=== PATIENT | female | born 1960 | race Caucasian/White ===

== ENCOUNTER 2019-10-02 10:17 | Outpatient (CLI) | payer OTHER, SELFPAY ==
--- NOTE | ~2019-10-02 | MM_ITS ---
EXAMINATION: MM screening [facility] BI w derian HISTORY: Screening TECHNIQUE: Craniocaudal and mediolateral oblique 3-D tomosynthesis images were obtained and synthetic 2-D images were generated. CAD analysis was submitted and interpreted. COMPARISON: Comparison to multiple prior studies sequentially, with oldest reviewed study dated 06/04. BREAST PARENCHYMAL COMPOSITION: The breasts are heterogenously dense, which may obscure small masses. FINDINGS: There is no evidence of suspicious mass, calcification, or architectural distortion to sugg est malignancy in either breast. There has been no suspicious interval change. IMPRESSION: 1. No mammographic evidence of malignancy. 2. Recommend routine screening mammography in one year. BI-RADS Category 1: Negative Reviewed, dictated and finalized at location A.
== END 2019-10-02 10:18 | disposition home or self-care (01) ==
PROVIDERS: PCP Internal Medicine; Visit Provider Internal Medicine
DX: Z12.31 Encounter for screening mammogram for malignant neoplasm of breast (principal)
CPT/HCPCS: 77063; 77067

== ENCOUNTER 2020-04-29 13:04 | Outpatient (CLI) | payer OTHER, SELFPAY ==
--- NOTE | ~2020-04-29 | DEXA_ITS ---
Bone Density Report Name: Vera Cunningham Age: 59 Sex: Female Ethnicity: White Date of : 1960 Indication: osteopenia; postmenopausal Referring Provider: MICHELL DUNAWAY Study: Bone densitometry was performed. Exam Date: April 29, 2020 Accession number: [id number] Bone Density: Region BMD T-score Z-score Classification AP Spine (L1-L4) 0.758 -2.6 -1.4 Osteoporosis Femoral Neck (Left) 0.544 -2.7 -1.6 Osteoporosis Total Hip (Left) 0.679 -2.2 -1.3 Osteopenia Total Hip Bilateral Avg 0.636 -2.6 -1.7 Osteoporosis Femoral Neck (Right) 0.524 -2.9 -1.8 Osteoporosis Total Hip (Right) 0.591 -2.9 -2.1 Osteoporosis World Health Organization criteria for BMD impression classify patients as: Normal (T-score at or above -1.0), Osteopenia (T-score between -1.0 and -2.5), or Osteoporosis (T-score at or below -2.5). 10-year Fracture Risk: FRAX not reported because: Some T-score for Spine Total or Hip Total or Femoral Neck at or below -2.5 Previous Exams: Region Exam Age BMD T-score BMD Change BMD Change Date g/cm2 vs Baseline vs Previous AP Spine(L1-L4) 04/29/2020 59 0.758 -2.6 -0.170(-18.3%) -0.123(-14.0%) 03/18/2015 54 0.881 -1.5 -0.047(-5.0%)# -0.047(-5.0%)# 01/16/2013 52 0.928 -1.1 Total Hip(Left) 04/29/2020 59 0.679 -2.2 -0.132(-16.2%) -0.091(-11.8%) 03/18/2015 54 0.770 -1.4 -0.041(-5.0%)# -0.041(-5.0%)# 01/16/2013 52 0.811 -1.1 Total Hip(Right) 04/29/2020 59 0.591 -2.9 -0.049(-7.6%)# -0.065(-9.9%)* 03/18/2015 54 0.656 -2.3 0.016(2.5%)# 0.016(2.5%)# 01/16/2013 52 0.640 -2.5 *Denotes significance at 95% confidence level, LSC for AP Spine = 0.022 g/cm2, LSC for Total Hip = 0.027 g/cm2 Clinical Information Provided by Patient: Has used the following medications: Vitamin D, Calcium Patient maximum height was 67 Menopause Age: 51 No regular weight bearing exercise Does not regularly consume dairy products Drinks caffeinated beverages Onset of menses at age 16 Number of children 0 Impression: The patient has osteoporosis, based on the Right Total Hip T-score. The BMD for the AP Spine(L1-L4) decreased, changing by -14.0% since the last DXA exam. The BMD for the Total Hip(Left) decreased, changing by -11.8% since the last DXA exam. The BMD for the Total Hip(Right) decreased, changing by -9.9% since the last DXA exam. Discussion: HIGH RISK OF FRACTURE. BONE DENSITY IS UNDESIRABLY LOW AT ONE OR MORE SKELETAL SITES, CONSISTENT
== END 2020-04-29 13:05 | disposition home or self-care (01) ==
LOC: ANHIMG 13:06
PROVIDERS: PCP Internal Medicine; Visit Provider Internal Medicine
DX: M85.89 Other specified disorders of bone density and structure, multiple sites (principal); M81.0 Age-related osteoporosis without current pathological fracture; M85.852 Other specified disorders of bone density and structure, left thigh
CPT/HCPCS: 77080

== ENCOUNTER 2020-05-05 15:43 | Outpatient (CLI) | payer OTHER, MEDICARE, SELFPAY | END 2020-05-05 15:44 | disposition home or self-care (01) | LOC: ANHCOVIDVC 15:43 | PROVIDERS: PCP Internal Medicine | DX: Z23 Encounter for immunization (principal) | CPT/HCPCS: 0001A; 91300 ==

== ENCOUNTER 2020-05-26 15:40 | Outpatient (CLI) | payer OTHER, MEDICARE, SELFPAY | END 2020-05-26 15:41 | disposition home or self-care (01) | LOC: ANHCOVIDVC 15:40 | PROVIDERS: PCP Internal Medicine | DX: Z23 Encounter for immunization (principal) | CPT/HCPCS: 0002A; 91300 ==

== ENCOUNTER 2020-10-08 11:02 | Outpatient (CLI) | payer OTHER, SELFPAY ==
--- NOTE | ~2020-10-08 | MM_ITS ---
EXAMINATION: MM screening [facility] BI w derian HISTORY: Screening mammogram TECHNIQUE: Craniocaudal and mediolateral oblique 3-D tomosynthesis images were obtained and synthetic 2-D images were generated. CAD analysis was submitted and interpreted. COMPARISON: 10/02/2019, 07/31/2018, 06/17/2017 BREAST PARENCHYMAL COMPOSITION: The breasts are heterogeneously dense, which may obscure small masses . FINDINGS: There is no evidence of suspicious mass, calcification, or architectural distortion to sugg est malignancy in either breast. There has been no suspicious interval change. IMPRESSION: 1. No mammographic evidence of malignancy. 2. Recommend routine screening mammography in one year. BI-RADS Category 1: Negative Reviewed, dictated and finalized at location A.
== END 2020-10-08 11:03 | disposition home or self-care (01) ==
LOC: ANHIMG 11:06
PROVIDERS: PCP Internal Medicine; Visit Provider Internal Medicine
DX: Z12.31 Encounter for screening mammogram for malignant neoplasm of breast (principal)
CPT/HCPCS: 77063; 77067

== ENCOUNTER → 2021-04-23 02:29 | Outpatient (CLI) | payer OTHER, SELFPAY ==
[2021-04-23 11:07] LABS: Influenza A QL RT-PCR Negative (Negative); Influenza B QL RT-PCR Negative (Negative); SARS-CoV-2 RNA PCR Negative
== END ==
PROVIDERS: PCP Internal Medicine; Visit Provider Internal Medicine
DX: R68.89 Other general symptoms and signs (principal); Z20.822 Contact with and (suspected) exposure to COVID-19
CPT/HCPCS: 87502; C9803; U0003; U0005

== ENCOUNTER 2021-07-15 12:27 | Emergency (ER) | payer OTHER, SELFPAY ==
--- NOTE | ~2021-07-15 | XR_ITS ---
EXAMINATION: CT abdomen pelvis wo con, XR abdomen/kub 1V DATE: 07/15/2021 15:01 INDICATION: Left flank pain TECHNIQUE: Computed tomography (CT) of the abdomen and pelvis was performed without intravenous contr ast. Automated exposure control and iterative reconstruction technique were employed. The dose-length product was 391.50 mGy-cm. COMPARISON: None FINDINGS: CT: Lung bases are clear. Heart size is normal. No pericardial or pleural effusion. Multiple hepatic cyst s primarily in the right hepatic lobe, the largest measuring 2 cm. A few tiny calcified gallstones at the dependent fundus of the normal-appearing gallbladder. Pancreas and bilateral adrenal glands are normal. Scalloped margin to the spleen with small amount of capsular calcification likely sequela of prior trauma, infarct or surgery. 1 cm cyst at the lower pole of the right kidney. Left kidney is unr emarkable. 1 mm stone at the left ureterovesicular junction without hydronephrosis or hydroureter. No other urolithiasis. Bladder, uterus and right adnexa are unremarkable. 1.5 cm left adnexal cyst. No free intraperitoneal gas or fluid. No pathologically enlarged abdominal or pelvic lymphadenopathy. Mo derate multilevel lumbar facet osteoarthritis. KUB: Normal bowel gas pattern. No evident urolithiasis. Specifically the 1 mm stone identified at the left ureterovesicular junctions unable to be visualized on the plain radiographs likely due to its small size. Lung bases are clear. IMPRESSION: 1. 1 mm stone at the left ureterovesicular junction without hydronephrosis or hydroureter. 2. Cholelithiasis. Reviewed, dictated and finalized at location B. IMPRESSION: 1. 1 mm stone at the left ureterovesicular junction without hydronephrosis or h ydroureter. 2. Cholelithiasis.
[2021-07-15 12:35] VITALS: BP 118/73; PULSE 66; RESP 16; TEMP 36.2; O2SAT 100
[2021-07-15 12:54] LABS: Basophils Percent Auto 0.8 % (0.2-1.2); Eosinophils Absolute Auto 0.1 K/mm3 (0-0.3); Eosinophils Percent Auto 2.1 % (0-4.4); Hematocrit 41.7 % (37.0-47.0); Hemoglobin 13.4 g/dL (12.0-15.0); Lymphocytes Absolute Auto 1.76 K/mm3 (0.9-3.2); Lymphocytes Percent Auto 33.1 % (18.3-44.2); Mean Corpuscular HGB Conc 32.1 g/dl (32-36); Mean Corpuscular Volume 93.5 fl (80-100); Mean Platelet Volume 10.1 fl (7.4-10.4); Monocytes Absolute Auto 0.3 K/mm3 (0.1-0.6); Monocytes Percent Auto 6.2 % (2.6-8.5); Neutrophils Absolute Auto 3.1 K/mm3 (1.3-6.7); Neutrophils Percent Auto 57.8 % (45.5-73.1); Platelet Count Result 203 k/mm3 (150-375); Red Blood Count 4.46 M/mm3 (4.2-5.4); Red Cell Distribution Width 13.4 % (11.5-14.5); White Blood Count 5.3 K/mm3 (4.5-10.0)
[2021-07-15 13:06] LABS: Alanine Aminotransferase 53 U/L (6-35); Albumin Level 4.6 g/dL (3.5-5.1); Alkaline Phosphatase 62 U/L (38-126); Anion Gap 5 mmol/L (8-16); Aspartate Amino Transferase 60 U/L (14-36); Bilirubin,Total 0.8 mg/dL (0.2-1.3); Blood Urea Nitrogen 18 mg/dL (7-17); Calcium 8.7 mg/dL (8.4-10.2); Carbon Dioxide 32 mmol/L (22-30); Chloride 100 mmol/L (98-107); Estimated CRCL calculation 65 ml/min; Estimated Glomerular Filt Rate > 60; Glucose 95 mg/dL (65-110); Lipase 121 U/L (23-300); Potassium 3.8 mmol/L (3.4-5.0); Sodium 137 mmol/L (137-145)
[2021-07-15 15:27] LABS: Appearance Urine Clear (Clear); Bilirubin Urine Negative (Negative); Blood Urine 2+ (Negative); Color Urine Yellow (Yellow); Glucose Urine UA Negative (Negative); Ketones Urine Negative (Negative); Leukocyte Esterase Ur Negative LEU/UL (Negative); Nitrate Urine Negative (Negative); Protein Urine Negative (Negative); Specific Grav Ur 1.015 (1.001-1.035); Urobilinogen Urine 0.2 mg/dL (<2.0); pH Urine 8.5 (5.0-9.0)
[2021-07-15] MEDS: SODIUM CHLORIDE 0.9% IV 1,000 ML 999 ML IV CONT (15:28)
[2021-07-15 15:35] LABS: Amorphous Sediment Urine Few; Bacteria Urine Trace /hpf; Mucus Urine Rare /lpf; RBC Urine >75 /hpf (0-2); Squamous Epithelial Cell Urine Rare /hpf (Few); WBC Urine 0-3 /hpf
[2021-07-15 15:36] LABS: Add Urine Microscopic? YES
[2021-07-15 16:13] VITALS: BP 118/64; PULSE 67; RESP 18; O2SAT 100
--- NOTE | 2021-07-15 18:32 | ED.BACK ---
HPI - Back Pain/Injury General Chief Complaint: Back Pain/Injury Stated Complaint: L side pain Time Seen by Provider: 07/15/21 14:24 Source: patient Mode of arrival: ambulatory Limitations: no limitations History of Present Illness HPI Narrative: 60-year-old female presents today with complaints of left flank pain that she noted this morning. At time of my assessment pain rated a 3 out of a 10. Patient denies fever, abdominal pain, dysuria, urinary frequency, urinary urgency, or hematuria. Patient denies history of kidney stones. Related Data Home Medications Medication Instructions Recorded Confirmed aspirin 81 mg tablet,delayed 81 mg PO DAILY 08/06/19 06/24/21 release (Adult Low Dose Aspirin) cholecalciferol (vitamin D3) 50 50 mcg PO DAILY 06/25/20 06/24/21 mcg (2,000 unit) capsule Allergies Allergy/AdvReac Type Severity Reaction Status Date / Time Penicillins Allergy Unknown unknown Verified 07/15/21 13:51 Sulfa (Sulfonamide Allergy Unknown unknown Verified 07/15/21 13:51 Antibiotics) Review of Systems Review of Systems: CONSTITUTIONAL: Denies fever, chills, or sweats. EYES: Denies visual changes, redness, or discharge. ENT: Denies rhinorrhea, congestion, sore throat, or otalgia. CARDIOVASCULAR: Denies chest pain, palpitations, or edema. RESPIRATORY: Denies cough or dyspnea. GASTROINTESTINAL: Denies abdominal pain, nausea, vomiting, or diarrhea. GENITOURINARY: Left flank pain. Denies dysuria or hematuria. SKIN: Denies rash or itching. MUSCULOSKELETAL: Denies back pain, joint pain, or myalgia. NEUROLOGIC: Denies headache, numbness, dizziness, or weakness. PSYCHIATRIC: Denies anxiety or depression. [facility] Past Medical History Medical History Aphasia following cerebral infarction Enlarged lymph nodes, unspecified Hemiplegia and hemiparesis following cerebral infarction affecting unspecified side Major depressive disorder, recurrent, in partial remission Other psychoactive substance use, unspecified with psychoactive substance-induced sleep disorder Pure hypercholesterolemia, unspecified Family History Family History Father Family history of heart disease in male family member before age 55 Patient's father is in good health Grandparent Diabetes mellitus Family history of Alzheimer's disease Mother Patient's mother is in good health Social History Social History Second hand tobacco smoke exposure: Yes Alcohol intake: current Drinks per week: 1 Alcohol use details: social Substance use: never Exam Narrative: GENERAL: Well-appearing, well-nourished, and in no acute distress. HEAD: Normocephalic, atraumatic. EYES: PERRLA and EOMI. NECK: Supple. No adenopathy or masses. No carotid bruits or JVD CHEST: Clear to auscultation. No respiratory distress. No wheezes rales or rhonchi HEART: Regular rate and rhythm. No murmur heard. Normal peripheral pulses. ABDOMEN: Soft, nontender, nondistended, normal active bowel sounds. CVA tenderness negative x2 EXTREMITIES: Right side flaccid due to previous stroke. No edema. SKIN: Warm, dry, no rash. NEURO: No focal deficits. Alert and oriented x3. PSYCH: Normal mood and affect. Course Course Emergency Course: Results reviewed with patient. Patient's pain has been tolerable entire stay. Patient did note blood in urine when she just urinated for her sample. Patient aware of 1 mm stone at the left ureterovesicular junction without hydronephrosis or hydroureter. Patient discharged home with pain medication and Flomax. Or to follow-up with either urology or your primary. Return with any new or worsening symptoms. Vital Signs Vital signs: Vital Signs Temperature 36.2 C L 07/15/21 12:35 Pulse Rate 66 07/15/21 12:35 Respiratory Rate 16 07/15/21 12:35 Blood Pressure 118/73
== END 2021-07-15 16:15 | disposition home or self-care (01) ==
PROVIDERS: Emergency Medicine; Emergency Provider Nurse Practitioner Family; PCP Internal Medicine
DX: N20.0 Calculus of kidney (principal)
CPT/HCPCS: 36415; 74018; 74176; 80053; 81001; 83690; 85025; 96360; 99284; J7030

== ENCOUNTER → 2021-09-18 03:03 | Outpatient (CLI) | payer OTHER, SELFPAY ==
[2021-09-18 12:03] LABS: SARS-CoV-2 RNA PCR Negative
== END ==
PROVIDERS: PCP Internal Medicine; Visit Provider Internal Medicine
DX: R09.89 Other specified symptoms and signs involving the circulatory and respiratory systems (principal); Z20.822 Contact with and (suspected) exposure to COVID-19
CPT/HCPCS: C9803; U0003; U0005

== ENCOUNTER 2021-10-20 09:19 | Outpatient (CLI) | payer OTHER, SELFPAY ==
--- NOTE | ~2021-10-20 | MM_ITS ---
EXAMINATION: MM screening [facility] BI w derian HISTORY: Screening mammogram TECHNIQUE: Craniocaudal and mediolateral oblique 3-D tomosynthesis images were obtained and synthetic 2-D images were generated. CAD analysis was submitted and interpreted. COMPARISON: 10/08/2020, 10/02/2019, 07/31/2018 BREAST PARENCHYMAL COMPOSITION: The breasts are heterogeneously dense, which may obscure small masses . FINDINGS: There is no suspicious mass, calcification, or architectural distortion to suggest malignan cy in either breast. There has been no suspicious interval change. IMPRESSION: 1. No mammographic evidence of malignancy. 2. Recommend routine screening mammography in one year. BI-RADS Category 1: Negative Reviewed, dictated and finalized at location A.
== END 2021-10-20 09:20 | disposition home or self-care (01) ==
PROVIDERS: PCP Internal Medicine; Visit Provider Internal Medicine
DX: Z12.31 Encounter for screening mammogram for malignant neoplasm of breast (principal)
CPT/HCPCS: 77063; 77067

== ENCOUNTER 2022-07-14 11:00 | Outpatient (RCR) | payer OTHER, SELFPAY ==
--- NOTE | 2022-05-17 10:41 | PTOPEVAL1 ---
Assessment and note entered by Robert Kerr, PT Evaluation Information Assessment Status Evaluation Diagnosis R ankle pain and decreased range of motion Onset CVA 2010 Subjective Information The patient has been having increased pain and walking issues with the R ankle rolling over. She has gotten a new more supportive AFO two months ago and gotten Botox injections done about 3 weeks ago with the plan for more Botox injections on July 21 of this year. Patient uses a cane to get around, but did not use coming into the clinic. One fall in the last three months. Patient having increased pain in the ankle at night after walking on it all day. Reported Pain Level Pain Score 4: Self Report Assessment PT Clinical Summary Vera is a 61 year old coming into the clinic for pain in the R ankle. She recently had a new AFO made and had Botox injections. She has decreased ankle dorsiflexion and eversion along with increased tone. Patient was given instructions on a night splint to prevent loss of range of motion at night. Physical therapy will work on gait along with improved ankle range of motion which shold decrease pain. Plan of Care Interventions Electrical Stimulation,Gait Training,Hot Pack/Cold Pack,Manual Therapy,Neuro Re-education,Patient/ Caregiver Education,Therapeutic Activities, Therapeutic Exercise,Ultrasound Other Interventions taping PT Services Indicated Yes Treatment Frequency and 1x/wk for 4 weeks Duration These treatments will address the objective and functional deficits as defined above. The patient will be advanced safely and appropriately in order for the patient to progress towards his/her prior level of function. Additional exercises will be introduced and as well as a comprehensive home exercise program upon discharge, if needed, ?to ensure carryover of functional gains achieved in the clinic. This treatment plan has been reviewed and agreement upon by the patient.
--- NOTE | 2022-05-17 13:40 | OTOPEVAL1 ---
Assessment and note entered by DOMENICA Saenz/Mau, CHT Evaluation Information Diagnosis CVA with right-sided weakness Onset 2010 Subjective Information Patient presents today with orders for a hand splint. She has had Botox to the wrist/finger flexors due to residual tone/tightness from her CVA. Reported Pain Level Pain Score 2: Right Shoulder Assessment OT Clinical Summary Patient referred to outpatient OT with chronic right sided weakness due to CVA in 2010. She has no active movement in the right UE, but passively she has some tightness in the wrist and finger flexors. She is an excellent candidate for a resting hand splint to help prevent further fisting of the right hand. Skilled OT indicated for splint fabrication and ensuring good fit and independence with don/doffing, therapeutic exercise for stretching, and modalities PRN. Plan of Care Interventions Therapeutic Exercise,Manual Therapy,Hot Pack/Cold Pack,Check Out for Orthotic/Pr OT Services Indicated Yes Treatment Frequency and 0-1x/week for 4 weeks Duration These treatments will address the objective and functional deficits as defined above. The patient will be advanced safely and appropriately in order for the patient to progress towards his/her prior level of function. Additional exercises will be introduced and as well as a comprehensive home exercise program upon discharge, if needed, ?to ensure carryover of functional gains achieved in the clinic. This treatment plan has been reviewed and agreement upon by the patient.
--- NOTE | 2022-05-17 16:40 | STOPEVAL1 ---
Assessment and note entered by Sridevi Engle SALES PROJECT COORDINATOR Evaluation Information Assessment Status Evaluation Assessment Status Evaluation Assessment Status Evaluation Diagnosis Aphasia Onset 03/2010 Subjective Information Patient reported that the woman with her was her power of assistant city attorney, turns out to be her sister as well. Patient reports that she feels that she feels Speech Therapy while at [facility] has been helpful. She [id number] that she feels her pitch is too high and her sister reports that sometimes patient speaks too loudly and has to be asked to quiet herself. Patient continually used the word pitch and sister continued to indicate that it was loudness. Reported Pain Level Pain Score 2: Self Report Pain Score 0: Self Report Pain Score 4: Self Report Assessment ST Clinical Summary COMMUNICATION EVALUATION This patient was seen for a Speech Therapy evaluation at the request of her physician. She was noted to have physical complaints and therefore PT/OT evaluation was requested along with the Speech Therapy evaluation. Patient and sister report what implied up to five years of Speech Therapy through patient's local hospital and [facility] along with two-three years of ST at the clinic on the [facility] but no Speech Therapy for the last five years or so. Patient reported she was told she has Aphasia and Anomia however she states that her biggest complaint currently is that her pitch is high. When saying this, patient placed her head up higher and produced a higher-pitched ah sound as opposed to a lower pitch however patient's sister repeated that her concern is that patient speaks too loudly in restaurants, therefore it was difficult to determine which of these issues bother them more. At the end of the session, patient indicated that she wants to be able to produce more fluent sentences without omitting the function words and other words and phrases from her sentences. Today the patient was given portions of the [place] [facility] Aphasia
--- NOTE | 2022-06-11 10:04 | OTOPDC ---
Assessment and note entered by Nelson Donohue, OTR/L, CHT OT DISCHARGE 06/11/22 OT Clinical Summary Patient referred to OT for hand orthotic. A custom resting hand orthotic was fabricated and she has trialed this for 2 weeks now. She is reporting good fit and not needing any adjustments. Plan to discharge from OT with goals met. Thank you for this referral.
--- NOTE | 2022-06-14 15:18 | PTOPDC ---
Assessment and note entered by Robert Kerr, PT Evaluation Information Assessment Status Discharge Diagnosis Right ankle hemiplegia, gait dysfunction Onset CVA 2010 Subjective Information Patient reports walking is better, but the ankle is going back to the way it was prior to botox injections. Reports she has had to slowly reduce time in the night splint as it starts hurting her more as she has it on. Walking in the park without issue. Reported Pain Level Pain Score 0: Self Report Pain Score 0: Self Report Assessment PT Clinical Summary Vera is a 61 year old female coming into the clinic to work on improving R ankle mobility following botox injections. The patient has improved strength in the RLE hips and knees along with self reported walking better. Unfortunately no improvement in ankle range of motion. Reports she is doing botox again July 21 and recommend getting in the night splint from day 1 instead of waiting multiple weeks before starting that. Discharged from skilled physical therapy at this time. Plan of Care PT Services Indicated No
--- NOTE | 2022-06-15 16:49 | STOPPROG ---
Assessment and note entered by Sridevi Engle, CLAY GRINDER Assessment ST Clinical Summary PROGRESS NOTE AND TREATMENT SUMMARY The patient has been seen for an outpatient speech /language evaluation and eight treatment sessions focusing on expressive language and speech. Patient reports that she feels that Speech Therapy has been helpful, Words, function words, him, her, they, When asked to clarify, she stated, Function words...is smooth sailing. When asked if anything else has gotten easier, patient stated, The and they a little bit harder for me. She made other comments that were not either intelligible or specific enough to understand. Patient stated, I have Speech Therapy, is great. Patient was presented with re-evaluation using portions of the [place] [facility] Aphasia Evaluation. Patient exhibited the following results: *Create a Sentence Given One Word: 3/5 (increase of 3; initially 0/5). *Divergent Naming: List Animals/One minute: 15 ( increase of 5 animals). *List States/One minute: 10 (no significant difference). *Describe Lorena Traore Theft Picture: 21 individual words; two sentences (increase from 18 individual words/two sentences). Therapy has been focusing on improving sentence construction, use of noun/verb, pronouns, helping verbs, and correct verb tenses. Patient is highly motivated to participate in direct Speech Therapy and desires to continue at least one more month. Continue Speech Therapy twice weekly for four additional weeks to address word finding and sentence construction as described above. Plan of Care Interventions Treatment of Language ST Services Indicated Yes These treatments will address the objective and functional deficits as defined above. The patient will be advanced safely and appropriately in order for the patient to progress towards his/her prior level of function. Additional exercises will be introduced and as well as a comprehensive home exercise program upon discharge, if needed, ?to ensure carryover of functional gains achieved in the clinic. This treatment plan has been reviewed and agreement upon by the patient.
--- NOTE | 2022-07-14 12:19 | STOPDC ---
Assessment and note entered by Sridevi Engle MARZIPAN MOLDER Evaluation Information Assessment Status Discharge Reported Pain Level Pain Score 0: Self Report Assessment ST Clinical Summary DISCHARGE SUMMARY AND TREATMENT SUMMARY This patient has been seen for an initial Speech Evaluation on 05/17 and 16 treatment sessions focusing on improving word-finding skills and sentence construction as she tends to speak in single words and short utterances. Patient had shown mild improvement in these areas from time of evaluation to re-assessment on 06/14. Today the patient reports that Speech Therapy has been helpful: Yes, yes, oh my God, yes? Helpful! Fabulous! When asked how it has been helpful, she stated, This and the...fine. Boy, terrible. A boy is terrible, for sure! Then she stated, One boy is terrible for me. Stroke is hard! When asked what she meant by one boy, she stated, Xavier and then, nephew, and expressed, not in so many words, that her nephew becomes a little frustrated when communicating with her. She mentioned other family members who do a fantastic job of following her communication. When asked if she wanted to continue, she stated yes, and that she wants to address longer sentences. Stated I would be fine and dandy. Patient also has been expressing in the past few sessions that she expects that her speech has plateaued and would understand if she were to be discharged. Today the patient was re-assessed using portions of the [facility] Language Evaluation and the Cookie Jar Theft Picture from the [place] [facility] Aphasia Evaluation (BDAE). Patient performed as follows: Sentence Construction: 4/5 sentences were complete . Increase from 3. Unfortunately, she struggled with one of those sentences, attempting three times to create an acceptable sentence without therapist assistance. Cookie Jar Theft Picture: Patient produced 23 appropriate words and 5 sentences, increasing from 18 words and 2 sentences. Some repetition of sentences noted (i.e. conveying the same information twice).
== END 2022-07-14 15:20 | disposition home or self-care (01) ==
LOC: ANHST 11:00
PROVIDERS: PCP Internal Medicine
DX: M21.549 Acquired clubfoot, unspecified foot (principal); M75.01 Adhesive capsulitis of right shoulder; M25.571 Pain in right ankle and joints of right foot; I69.359 Hemiplegia and hemiparesis following cerebral infarction affecting unspecified side; R26.9 Unspecified abnormalities of gait and mobility; R13.0 Aphagia; G89.29 Other chronic pain; Z78.9 Other specified health status
CPT/HCPCS: 92507; 92523; 97110; 97140; 97161; 97165; 97763; L3806

== ENCOUNTER 2023-01-25 15:18 | Outpatient (CLI) | payer OTHER, SELFPAY ==
--- NOTE | ~2023-01-25 | MM_ITS ---
EXAMINATION: MM screening [facility] BI w derian HISTORY: Screening mammogram TECHNIQUE: Craniocaudal and mediolateral oblique 3-D tomosynthesis images were obtained and synthetic 2-D images were generated. CAD analysis was submitted and interpreted. COMPARISON: 10/20/2021, 10/08/2020, 10/02/2019 BREAST PARENCHYMAL COMPOSITION: The breasts are heterogeneously dense, which may obscure small masses . FINDINGS: No suspicious mass, calcification, or architectural distortion are identified in either deny ast to suggest malignancy. There has been no suspicious interval change. IMPRESSION: 1. No mammographic evidence of malignancy. 2. Recommend routine screening mammography in one year. BI-RADS Category 1: Negative Reviewed, dictated and finalized at location A. METALS HAND ENGRAVER
== END 2023-01-25 15:19 | disposition home or self-care (01) ==
PROVIDERS: PCP Nurse Practitioner Family; Visit Provider Nurse Practitioner Family
DX: Z12.31 Encounter for screening mammogram for malignant neoplasm of breast (principal)
CPT/HCPCS: 77063; 77067

== ENCOUNTER 2023-03-22 11:16 | Outpatient (CLI) | payer OTHER, SELFPAY ==
--- NOTE | ~2023-03-22 | XR_ITS ---
XR chest 2V DATE: 03/22/2023 11:38 INDICATION: Unintended weight loss past year TECHNIQUE: PA and lateral views COMPARISON: None FINDINGS: Bilateral hyperinflation. Normal heart size. No hilar or mediastinal enlargement. No pulmonary infiltrate or consolidation, pulmonary vascular congestion or pleural effusion or pneumo thorax. Mild thoracic dextroscoliosis and lumbar levoscoliosis. IMPRESSION: Bilateral hyperinflation Reviewed, dictated and finalized at location L. TINTER IMPRESSION: Bilateral hyperinflation
== END 2023-03-22 11:17 | disposition home or self-care (01) ==
PROVIDERS: PCP Nurse Practitioner Family; Visit Provider Nurse Practitioner Family
DX: R59.9 Enlarged lymph nodes, unspecified (principal); R63.4 Abnormal weight loss; R91.8 Other nonspecific abnormal finding of lung field
CPT/HCPCS: 71046

== ENCOUNTER 2023-03-26 09:58 | Emergency (ER) | payer OTHER, SELFPAY ==
--- NOTE | ~2023-03-26 | CT_ITS ---
EXAMINATION: CT abdomen pelvis wo con DATE: 03/26/2023 12:51 INDICATION: Left flank pain TECHNIQUE: Computed tomography (CT) of the abdomen and pelvis was performed without intravenous contr ast. The dose-length product (DLP) was 244.72 mGy-cm. Automated exposure control and iterative recons truction technique were employed. COMPARISON: 07/15/2021 FINDINGS: Minimal dependent atelectasis is present in the lung bases. The heart size is normal. Cysts of the liver measure up to 1.8 cm in the left hepatic lobe. There are stones in the nondistended gal lbladder. Peripheral calcification of the spleen may reflect prior trauma, surgery, or infarct. The p ancreas and adrenal glands are normal. The kidneys are unremarkable. No stones are identified in the kidneys, ureters, or bladder. No hydronephrosis or hydroureter. No pathologically enlarged abdominal or pelvic lymph nodes are identified. No free intraperitoneal gas or evidence of bowel obstruction. T here is moderate lumbar spondylosis. IMPRESSION: 1. No CT correlate for the patient's symptoms. 2. Cholelithiasis without evidence of cholecystitis. Reviewed, dictated and finalized at location F. 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
[2023-03-26 10:16] VITALS: BP 123/75; PULSE 76; RESP 16; TEMP 35.9; O2SAT 100
--- NOTE | 2023-03-26 10:32 | ECG_ITS ---
Measurements Intervals [place] Rate: 61 P: 43 MO: 165 QRS: 45 QRSD: 82 T: 17 QT: 310 QTc: 313 Interpretive Statements SINUS RHYTHM NONSPECIFIC T-WAVE ABNORMALITY NO PREVIOUS ECG AVAILABLE FOR COMPARISON Electronically Signed On 03-26-2023 12:36:08 STORE DELI MANAGER by Ankur Mcdonough M.D.
--- NOTE | 2023-03-26 10:34 | ED.GENADULT ---
HPI - General Adult General Chief complaint: Recheck/Abnormal Lab/Rx Stated complaint: low potassium Time Seen by Provider: 03/26/23 10:32 History of Present Illness HPI narrative: 62-year-old female presenting to the emergency department for evaluation of hypokalemia. Patient had outpatient labs showing a low potassium. Patient also reports she does have some urinary symptoms. Patient initially had follow-up with outpatient due to having some left flank pain and when she had baseline labs she was found to have a hypokalemia. Patient does have aphasia from an intentional overdose and stroke approximately 13 years ago. Patient is present with her sister. Patient does report a prior history of ureteral calculi Related Data Home Medications Medication Instructions Recorded Confirmed aspirin 81 mg tablet,delayed 81 mg PO DAILY 08/06/19 03/25/23 release (Adult Low Dose Aspirin) cholecalciferol (vitamin D3) 50 50 mcg PO DAILY 06/25/20 03/25/23 mcg (2,000 unit) capsule baclofen 10 mg tablet 10 mg PO QHS PRN muscle spasm 03/21/23 03/25/23 Allergies Allergy/AdvReac Type Severity Reaction Status Date / Time nabumetone Allergy Mild skin Verified 03/25/23 10:44 peeling Penicillins Allergy Unknown unknown Verified 03/25/23 10:44 Sulfa (Sulfonamide Allergy Unknown unknown Verified 03/25/23 10:44 Antibiotics) Review of Systems Review of Systems: All systems reviewed & are unremarkable except as noted in HPI and below PMFSH Past Medical History Medical History Aphasia following cerebral infarction Enlarged lymph nodes, unspecified Hemiplegia and hemiparesis following cerebral infarction affecting unspecified side Major depressive disorder, recurrent, in partial remission Other psychoactive substance use, unspecified with psychoactive substance-induced sleep disorder Pure hypercholesterolemia, unspecified Family History Family History Father Family history of heart disease in male family member before age 55 Patient's father is in good health Grandparent Diabetes mellitus Family history of Alzheimer's disease Mother Patient's mother is in good health Social History Social History Smoking status: Never smoker Second hand tobacco smoke exposure: Yes Alcohol intake: current Drinks per week: 1 Alcohol use details: social Substance use: never Substance use type: does not use Lack of Transportation: No Lack of Food: Never True Current Housing: I Have Housing Concerned About Future Housing: No Difficulty Paying Gas/Electric Bills: No Difficulty Paying for Meds: No Currently Unemployed: No Education: Decline to Answer Difficulty w/ Childcare or Family Care: No Exam Narrative: APPEARANCE: Well appearing, no pain, no distress, well-nourished. HEAD: normocephalic, atraumatic. EYES: PERRLA/EOMI, conjunctivae clear. NOSE: Normal no drainage EARS:TMS clear with good light reflex. THROAT: Pharynx clear, no exudate. NECK: Supple. No adenopathy, no masses. RESPIRATORY: Airway patent, respirations nonlabored. Clear to auscultation bilaterally, no rales, rhonchi, wheezing. CARDIOVASCULAR: Regular rate and rhythm without murmurs rubs or gallops. ABDOMINAL: Soft, left CVA tenderness to palpation MUSCULOSKELETAL: Moves all extremities. Strength/ROM intact, No edema, No calf tenderness. NEURO: Aphasia, unchanged from baseline SKIN: Warm, dry. Normal Color Course Course Emergency Course: 62-year-old female presenting to the emergency department for evaluation of left flank pain and outpatient labs showing hypokalemia. Patient was treated with 40 mEq of p.o. potassium and 20 mEq of IV potassium. Patient afebrile with a leukocytosis of 11.7 stable hemoglobin 11.8. The patient's initial potassium was 2.6 and this was r
[2023-03-26 10:52] LABS: Basophils Percent Auto 0.1 % (0.2-1.2); Eosinophils Percent Auto 0.2 % (0-4.4); Hematocrit 35.6 % (37.0-47.0); Hemoglobin 11.8 g/dL (12.0-15.0); Immature Granulocyte Absolute 0.04 K/mm3 (0.00-0.031); Immature Granulocyte Percent A 0.3 % (0-0.5); Lymphocytes Absolute Auto 1.99 K/mm3 (0.9-3.2); Mean Corpuscular HGB Conc 33.1 g/dl (32-36); Mean Corpuscular Hemoglobin 30.1 pg (26-34); Mean Corpuscular Volume 90.8 fl (80-100); Mean Platelet Volume 10.9 fl (7.4-10.4); Monocytes Absolute Auto 0.8 K/mm3 (0.1-0.6); Monocytes Percent Auto 6.5 % (2.6-8.5); Neutrophils Absolute Auto 8.9 K/mm3 (1.3-6.7); Neutrophils Percent Auto 75.9 % (45.5-73.1); Platelet Count Result 220 k/mm3 (150-375); Red Blood Count 3.92 M/mm3 (4.2-5.4); Red Cell Distribution Width 13.9 % (11.5-14.5); White Blood Count 11.7 K/mm3 (4.5-10.0)
[2023-03-26 11:05] LABS: Alanine Aminotransferase 16 U/L (6-35); Albumin Level 4.2 g/dL (3.5-5.1); Alkaline Phosphatase 68 U/L (38-126); Anion Gap 6 mmol/L (8-16); Aspartate Amino Transferase 24 U/L (14-36); Blood Urea Nitrogen 16 mg/dL (7-17); Calcium 10.2 mg/dL (8.4-10.2); Carbon Dioxide 34 mmol/L (22-30); Chloride 95 mmol/L (98-107); Estimated CRCL calculation 43 ml/min; Estimated Glomerular Filt Rate 51; Glucose 122 mg/dL (65-110); Magnesium 2.2 mg/dL (1.6-2.3); Potassium 2.6 mmol/L (3.4-5.0); Sodium 135 mmol/L (137-145)
[2023-03-26] MEDS: KCL 20 MEQ/SW 100 ML 100 ML 50 MEQ IVPB (11:30)
[2023-03-26] MEDS: POTASSIUM CHLORIDE 20 MEQ PACKET (FOR LIQUID) 40 MEQ PO ×2 (11:30→14:30)
[2023-03-26 11:34] VITALS: BP 112/78; PULSE 72; RESP 17; O2SAT 99
[2023-03-26] MEDS: SODIUM CHLORIDE 0.9% IV 250 ML 999 ML (11:43)
[2023-03-26 12:59] LABS: Appearance Urine Turbid (Clear); Bacteria Urine Rare /hpf; Bilirubin Urine Negative (Negative); Blood Urine Negative (Negative); Color Urine Yellow (Yellow); Glucose Urine UA Negative (Negative); Granular Casts Urine Present /lpf; Hyaline Casts Urine Present /lpf; Ketones Urine Trace mg/dL (Negative); Leukocyte Esterase Ur Trace LEU/UL (Negative); Mucus Urine Present /lpf; Nitrate Urine Negative (Negative); Non Pathogenic Casts >20; Protein Urine 3+ mg/dL (Negative); Squamous Epithelial Cell Urine Moderate /hpf (Few); pH Urine 8.5 (5.0-9.0)
[2023-03-26 13:00] LABS: Add Urine Microscopic? YES
[2023-03-26 14:07] LABS: Anion Gap 3 mmol/L (8-16); Blood Urea Nitrogen 16 mg/dL (7-17); Calcium 9.7 mg/dL (8.4-10.2); Carbon Dioxide 33 mmol/L (22-30); Chloride 99 mmol/L (98-107); Estimated CRCL calculation 47 ml/min; Estimated Glomerular Filt Rate 57; Glucose 92 mg/dL (65-110); Potassium 2.9 mmol/L (3.4-5.0); Sodium 135 mmol/L (137-145)
[2023-03-26 14:10] VITALS: BP 111/72; PULSE 60; RESP 13; O2SAT 96
[2023-03-26 14:30] VITALS: BP 116/71; PULSE 62; RESP 20; O2SAT 99
== END 2023-03-26 14:37 | disposition home or self-care (01) ==
PROVIDERS: Emergency Provider Emergency Medicine; PCP Nurse Practitioner Family
DX: E87.6 Hypokalemia (principal); R10.9 Unspecified abdominal pain; E78.00 Pure hypercholesterolemia, unspecified; I69.320 Aphasia following cerebral infarction; I69.351 Hemiplegia and hemiparesis following cerebral infarction affecting right dominant side; Z87.442 Personal history of urinary calculi; Z79.82 Long term (current) use of aspirin; K80.20 Calculus of gallbladder without cholecystitis without obstruction; R94.31 Abnormal electrocardiogram [ECG] [EKG]
CPT/HCPCS: 36415; 74176; 80048; 80053; 81001; 83735; 85025; 87086; 93005; 96365; 96366; 99284; A9270; J3480; J7050

== ENCOUNTER 2023-09-20 09:37 | Outpatient (CLI) | payer OTHER, SELFPAY ==
--- NOTE | ~2023-09-20 | XR_ITS ---
Right Knee Technique: AP, lateral, and oblique views were obtained. Clinical History: Pain Findings: No fracture or dislocation is seen. Osseous alignment is anatomic. Mild tricompartmental sp urring noted. Soft tissues are unremarkable. No joint effusion is seen. Impression: Mild tricompartmental degenerative spurring. Reviewed, dictated and finalized at [facility]. Impression: Mild tricompartmental degenerative spurring.
== END 2023-09-20 09:38 | disposition home or self-care (01) ==
LOC: ANHIMG 09:43
PROVIDERS: PCP Nurse Practitioner Family; Visit Provider Nurse Practitioner Family
DX: M17.11 Unilateral primary osteoarthritis, right knee (principal)
CPT/HCPCS: 73564

== ENCOUNTER 2023-11-02 13:14 | Emergency (ER) | payer OTHER, SELFPAY ==
[2023-11-02 13:21] VITALS: BP 114/67; PULSE 72; RESP 14; TEMP 36.6; O2SAT 100
[2023-11-02 13:35] LABS: Basophils Percent Auto 0.5 % (0.2-1.2); Eosinophils Absolute Auto 0.1 K/mm3 (0-0.3); Hematocrit 37.1 % (37.0-47.0); Hemoglobin 12.2 g/dL (12.0-15.0); Immature Granulocyte Absolute 0.03 K/mm3 (0.00-0.031); Immature Granulocyte Percent A 0.4 % (0-0.5); Lymphocytes Absolute Auto 1.93 K/mm3 (0.9-3.2); Lymphocytes Percent Auto 24.1 % (18.3-44.2); Mean Corpuscular HGB Conc 32.9 g/dl (32-36); Mean Corpuscular Hemoglobin 30.3 pg (26-34); Mean Corpuscular Volume 92.1 fl (80-100); Mean Platelet Volume 10.2 fl (7.4-10.4); Monocytes Absolute Auto 0.7 K/mm3 (0.1-0.6); Monocytes Percent Auto 9.2 % (2.6-8.5); Neutrophils Absolute Auto 5.2 K/mm3 (1.3-6.7); Neutrophils Percent Auto 64.8 % (45.5-73.1); Platelet Count Result 218 k/mm3 (150-375); Red Blood Count 4.03 M/mm3 (4.2-5.4); Red Cell Distribution Width 14.4 % (11.5-14.5)
[2023-11-02 13:48] LABS: Alanine Aminotransferase 32 U/L (6-35); Albumin Level 3.7 g/dL (3.5-5.1); Alkaline Phosphatase 70 U/L (38-126); Aspartate Amino Transferase 30 U/L (14-36); Bilirubin,Total 0.6 mg/dL (0.2-1.3); Blood Urea Nitrogen 18 mg/dL (7-17); Calcium 9.1 mg/dL (8.4-10.2); Carbon Dioxide > 40 mmol/L (22-30); Chloride 91 mmol/L (98-107); Estimated CRCL calculation 51 ml/min; Estimated Glomerular Filt Rate > 60; Glucose 76 mg/dL (65-110); Potassium 2.6 mmol/L (3.4-5.0); Sodium 136 mmol/L (137-145)
[2023-11-02] MEDS: SODIUM CHLORIDE 0.9% IV 500 ML 999 ML IV CONT (14:22)
[2023-11-02] MEDS: KCL 20 MEQ/SW 100 ML 100 ML 50 MEQ IVPB (14:22)
[2023-11-02] MEDS: POTASSIUM CHLORIDE 20 MEQ ER TABLET 40 MEQ PO (14:23)
--- NOTE | 2023-11-02 16:07 | ED.GENADULT ---
HPI - General Adult General Chief complaint: Recheck/Abnormal Lab/Rx Stated complaint: low k Time Seen by Provider: 11/02/23 13:28 History of Present Illness HPI narrative: Patient is a 63-year-old female who presents ER with low potassium. She had outpatient labs performed yesterday routinely by her PCP. She has history of low potassium in the past. She takes potassium chloride 10 mEq daily. She has not missed a dose. She reports she has had poor appetite recently. No diarrhea or vomiting. Denies fevers or chills or sweats. No muscle spasms. Patient has mild expressive aphasia from previous CVA. Related Data Home Medications Medication Instructions Recorded Confirmed aspirin 81 mg tablet,delayed 81 mg PO DAILY 08/06/19 10/06/23 release (Adult Low Dose Aspirin) cholecalciferol (vitamin D3) 50 50 mcg PO DAILY 06/25/20 10/06/23 mcg (2,000 unit) capsule Allergies Allergy/AdvReac Type Severity Reaction Status Date / Time nabumetone Allergy Mild skin Verified 11/01/23 11:41 peeling Penicillins Allergy Unknown unknown Verified 11/01/23 11:41 Sulfa (Sulfonamide Allergy Unknown unknown Verified 11/01/23 11:41 Antibiotics) Review of Systems Review of Systems: All systems reviewed & are unremarkable except as noted in HPI and below Constitutional: Constitutional: Reports no additional constitutional complaints Cardiovascular: Cardiovascular: Reports no additional cardiovascular complaints Respiratory: Respiratory: Reports no additional respiratory complaints Gastrointestinal: Gastrointestinal: Reports no additional gastrointestinal complaints Neurologic: Reports system reviewed and no additional complaints, except as documented [facility] Past Medical History Medical History Abdominal abscess Aphasia following cerebral infarction Enlarged lymph nodes, unspecified Hemiplegia and hemiparesis following cerebral infarction affecting unspecified side Major depressive disorder, recurrent, in partial remission Other psychoactive substance use, unspecified with psychoactive substance-induced sleep disorder Pure hypercholesterolemia, unspecified Surgical History Surgical History History of oral surgery History of tonsillectomy Family History Family History Father Family history of heart disease in male family member before age 55 Patient's father is in good health Heart disease Grandparent Diabetes mellitus Family history of Alzheimer's disease Mother Patient's mother is in good health Social History Social History Smoking status: Never smoker Second hand tobacco smoke exposure: Yes Alcohol intake: current Drinks per week: 1 Alcohol use details: social Substance use: current Substance use type: marijuana Last use: edibles Do You Feel Safe in your Home?: Yes Lack of Transportation: No Lack of Food: Never True Current Housing: I Have Housing Concerned About Future Housing: Decline to Answer Difficulty Paying Gas/Electric Bills: Decline to Answer Difficulty Paying for Meds: Decline to Answer Currently Unemployed: Decline to Answer Education: Decline to Answer Difficulty w/ Childcare or Family Care: Decline to Answer Living arrangements: alone Occupation/Education: retired 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 HEAD: Normocephalic, atraumatic. ENT: Mucous membranes moist. NECK: Supple. CHEST: Clear to auscultation. No respiratory distress. HEART: Regular rate and rhythm. Normal peripheral pulses. ABDOMEN: Soft, nontender, nondistended. EXTREMITIES: Right-sided wea
[2023-11-02 16:54] LABS: Anion Gap 4 mmol/L (4-12); Blood Urea Nitrogen 17 mg/dL (7-17); Calcium 8.6 mg/dL (8.4-10.2); Carbon Dioxide 35 mmol/L (22-30); Chloride 95 mmol/L (98-107); Estimated CRCL calculation 57 ml/min; Estimated Glomerular Filt Rate > 60; Glucose 94 mg/dL (65-110); Potassium 3.1 mmol/L (3.4-5.0); Sodium 134 mmol/L (137-145)
== END 2023-11-02 17:28 | disposition home or self-care (01) ==
PROVIDERS: Emergency Provider Emergency Medicine; PCP Nurse Practitioner Family
DX: E87.6 Hypokalemia (principal); Z79.82 Long term (current) use of aspirin; E78.00 Pure hypercholesterolemia, unspecified; I69.320 Aphasia following cerebral infarction; I69.359 Hemiplegia and hemiparesis following cerebral infarction affecting unspecified side; F33.41 Major depressive disorder, recurrent, in partial remission
CPT/HCPCS: 36415; 80048; 80053; 85025; 96365; 96366; 99284; A9270; J3480; J7040

== ENCOUNTER 2023-11-16 10:26 | Outpatient (CLI) | payer OTHER, SELFPAY ==
--- NOTE | ~2023-11-16 | US_ITS ---
EXAMINATION: US right upper quadrant DATE: 11/16/2023 11:32 INDICATION: R10.11 - Right upper quadrant pain TECHNIQUE: Multiple grayscale and Doppler ultrasound images of the right upper quadrant were obtained . COMPARISON: CT abdomen pelvis 03/26/2023. FINDINGS: The visualized portions of the pancreas are normal. The liver is normal with normal echogen icity and echotexture. No surface nodularity. Multiple hepatic cysts. Normal hepatopetal flow in the main portal vein. The gallbladder is normal size with no abnormal wall thickening or pericholecystic fluid. Multiple echogenic foci within the gallbladder lumen, likely gallstones. The common bile duct measures 2 mm. There was no sonographic Cleaning sign. IMPRESSION: Cholelithiasis. Otherwise normal right upper quadrant ultrasound findings. Reviewed, dictated and finalized at location K.
== END 2023-11-16 10:27 | disposition home or self-care (01) ==
PROVIDERS: PCP Nurse Practitioner Family; Visit Provider Nurse Practitioner Family
DX: K80.20 Calculus of gallbladder without cholecystitis without obstruction (principal)
CPT/HCPCS: 76705

== ENCOUNTER 2024-01-31 14:10 | Outpatient (CLI) | payer OTHER, SELFPAY ==
--- NOTE | ~2024-01-31 | XR_ITS ---
EXAM: XR knee LT min 4V, XR tibia fibula LT 2V DATE: 01/31/2024 14:36 HISTORY: W19.XXXA - Unspecified fall, initial encounter . COMPARISON: None available. FINDINGS: Decreased mineralization. No fracture or dislocation. No lytic or blastic lesion. Mild med ial and lateral knee joint space narrowing. Mild tricompartmental knee osteophytosis. Mild degenerati ve changes in the ankle joint. Small volume joint fluid. No erosion or periosteal change. Soft tissue s within normal limits. IMPRESSION: Osteopenia. Mild tricompartmental left knee osteoarthritis. Mild left ankle osteoarthriti s. Small left knee joint effusion. Reviewed, dictated and finalized at location K. 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 Mild tricompartmental left knee osteoarthritis. Mild le ft ankle osteoarthritis. Small left knee joint effusion.
== END 2024-01-31 14:11 | disposition home or self-care (01) ==
PROVIDERS: PCP Nurse Practitioner Family; Visit Provider Nurse Practitioner Family
DX: M85.88 Other specified disorders of bone density and structure, other site (principal); M17.12 Unilateral primary osteoarthritis, left knee; M19.072 Primary osteoarthritis, left ankle and foot; M25.462 Effusion, left knee
CPT/HCPCS: 73564; 73590

== ENCOUNTER 2024-05-30 13:07 | Outpatient (CLI) | payer OTHER, SELFPAY ==
--- NOTE | ~2024-05-30 | US_ITS ---
EXAM: US carotid duplex BI - 05/30/2024 13:30 CDT History: 63 years old Female with I67.9 - Cerebrovascular disease, unspecified Technique: Real-time sonographic images of the bilateral carotid and vertebral arterial systems were obtained. Color Doppler sonography and spectral waveform analysis were performed. Comparison: None available Findings: No atherosclerotic plaque seen.. Right Velocities (cm/sec): Right Common carotid Peak systolic velocity: 125 Right internal carotid Peak systolic velocity: 113 End diastolic velocity: 41 Right ICA/CCA ratio: 0.9 Right External carotid Peak systolic velocity: 68.4 Right Vertebral: Antegrade flow Left Velocities (cm/sec): Left Common carotid Peak systolic velocity: 99 Left internal carotid Peak systolic velocity: 76 End diastolic velocity: 16 Left ICA/CCA ratio: 0.8 Left External carotid Peak systolic velocity: 62 Left Vertebral: Antegrade flow Impression: No evidence of significant carotid vascular stenosis. Reviewed, dictated and finalized at location A. Impression: No evidence of significant carotid vascular stenosis.
--- OUTSIDE RECORDS SUMMARY | 2024-05-30 14:42 | XMS_ITS | Continuity of Care Document ---
Author Organization [facility] Address [address] [place] [address] Phone Care Team Providers Care Surgical Technician Name Role Phone Sadie Motta Unavailable Unavaila ble Allergies, Adverse Reactions, Alerts Substance Reaction Status Criticality Sulfa (Sulfonamide Antibiotics) Unknown Active No Information Penicillins Unknown Active No Information Medications Medication Instructions Dosage Effective Dates (start - stop) Status Comments LEVOTHROID (unknown strength) Not Available - Active ASPIR 81 (unknown strength) Not Available - Active TOPIRAMATE (unknown strength) Not Available - Active POTASSIUM CITRATE ER (unknown strength) Not Available - Active CITALOPRAM HBR (unknown strength) Not Available - Active METAXALONE (unknown strength) Not Available - Active CALCIUM (unknown strength) Not Available - Active Procedures Procedure Date OFFICE/OUTPATIENT VISIT EST OFFICE/OUTPATIENT VISIT NEW Advance Directives Directive Yes / No Effective Date File Name No Information Encounters Encounter Description Practice Location Reason(s) For Visit Diagnoses Date Provider Providers Copied on Encounter OFFICE/OUTPAT IENT VISIT EST [facility] , [address] [facility] [address] [place] [address], [facility], tel:[phone] [facility] Bursitis of right shoulderHemip legia, unspecified affecting right dominant sidePain of right shoulder region [address]. [address], [place], [address]. tel: [phone] OFFICE/OUTPAT IENT VISIT NEW [facility] , [address], [place], [address], tel:[phone] [facility] Pain in joint involving shoulder region [address] L'Radha Demarco. [address], [place], [place], [id number] . tel: [phone] Referring Provider: Kendy Kamara [address], [place], [address]. tel:[phone] Family History Family Member Type Diagnosis Age At Onset Father Problem (finding) Cardiovascular disease Payers Payer name Insurance type Covered green party ID Clement lauren(s) Essence OT [id number] Social History Type Description Quantity Date Captured Comments Alcohol Use Details Caffeine Use Details Unknown Tobacco Use Status No Information Smoking Status No Information Sex Female Vital Signs Date / Time: Height Weight BMI Pulse Rate Blood Pressure Temperature Respiratory Rate Body Surface Area Head Circumference Head Circ. Percentile Wt./Romeo. Percentile BMI percentile Pulse Ox Inhaled Ox 4:45 PM 67.00 in 58.967 kg (130.00 lbs) 20.3 6 kg/m eter (2) 124/64 mm[Hg] Chief Complaint And Reason For Visit No Information Reason For Referral Reason For Referral No Information Plan Of Treatment Date Type Action Status Referral Ordered: RADEX ERNIE COMPL MINIMUM 2 VIEWS RT ordered History Of Present Illness Encounter Date Complaint History Of Prese nt Illness No Information Functional Status Date Functional Assessmen t No Information Instructions Date Instruction Additional Infor mation Rest, ice and elevate. Related t o Bursitis of right shoulder Home exercise program. Related t o Pain in joint involving shoulder region Assessments Type Assessment Date assessment Bursitis of right shoulder assessment Hemiplegia, unspecified affectin g right dominant side assessment Pain of right shoulder region Patient Care Teams Name Effective Dates (start - stop) Status Members No Information
--- OUTSIDE RECORDS SUMMARY | 2024-05-30 14:42 | XMS_ITS | Data Portability ---
Author Organization [facility] [place] Address [address] [place] [address] Assessment Encounter Date Assessment Date Assessment LastModified by Organization Details LastModified Time 11/26/2022 11/26/2022 Annual gynecological exam performed. Patient will come back in a year unless there are new symptoms. [email or web address] Not available 12/02/2022 10:45:13 Plan of Treatment Reminders Order Date Submit Date Provider Last Modified By Organization Details Last Modified Time Details Appointments None record ed. Lab None record ed. Referral None record ed. Procedures None record ed. Surgeries None record ed. Imaging None record ed. Medication Orders None record ed. Patient TargetsNo targets recorded. Patient InstructionsNo instructions recorded. Reason for Referral None Reported. Problems Name Problem SNOMED Code Status Onset Date Resolution Date Notes Provider Name and Address Organization Details Recorded Time Screening for malignant neoplasm of rectum Active 2015 Encounter for screening for malignant neoplasm of rectum;Pra ctice ID: 0001 Not Available [facility] 0 21:23:36 Evaluatio n finding Active 2017 Hematuria, unspecifie d;Practice ID: 0001 Not Available [facility] 0 21:23:37 Specializ ed medical examinati on Active 2013 Gynecologi devika Examinatio n;Recorded Elsewhere: No Locatio n: [facility] rce: EHR Chroni c: N Practice ID: 0001 Billa ble Time: 04:30:00 PM Not Available [facility] 0 21:23:37 Leukocyto sis [id number] Active 2013 LEUKOCYTOS IS NOS;Record ed Elsewhere: No Locatio n: [facility] rce: EHR Chroni c: N Practice ID: 0001 Billa ble Time: 04:30:00 PM Not Available [facility] 0 21:23:[address] Concept Active 2017 Encntr for general adult medical exam w/o abnormal findings;R ecorded Elsewhere: No Locatio n: [facility] rce: EHR Chroni c: N Practice ID: 0001 Billa ble Time: 01:30:00 PM Not Available [facility] 0 21:23:[address] Concept Active 2015 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;R ecorded Elsewhere: No Locatio n: [facility] rce: EHR Chroni c: N Practice ID: 0001 Billa ble Time: 02:30:00 PM Not Available [facility] 0 21:23:37 Screening for malignant neoplasm of cervix Active 2013 Screening for malignant neoplasms of the cervix;Rec orded Elsewhere: No Locatio n: [facility] rce: EHR Chroni c: N Practice ID: 0001 Billa ble Time: 04:30:00 PM Not Available [facility] 0 21:23:[address] Concept Active 2017 Encounter for general adult medical exam w abnormal findings;P ractice ID: 0001 Not Available [facility] 0 21:23:37 Problem Notes None recorded. Procedures Surgical History Date Name Laterality Status Provider Name and Address Organization Details Recorded Time 11/22/19 22 Date of Last Mammogram completed [facility] 11/26/2022 14:29:58 02/21/19 22 Most Recent Bone Density completed [facility] 11/26/2022 14:30:23 02/21/19 17 Date of Last Colonoscopy completed [facility] 11/26/2022 14:30:12 02/05/20 16 Date of Last Pap Smear completed [facility] 11/26/2022 14:29:50 laparoscopic myomectomy completed [facility] 11/26/2022 14:31:06 Imaging Results None recorded. Procedure Notes None recorded. Medical Equipment None Reported. Allergies Allergen ID Allergen Name Allergen Category Reaction Reaction Severity Criticality Documentation Date Start Date Code Code System Note Provider Name and Address Organization Details Recorded Time 45492 Product containin g penicilli n (product) medicatio n Not available Not available Not available 02/08/2020 91951 8001 SNOMED Comme nt: Locat [facility]; Not Available [facility] 0 14:20:44 23546 Substance with sulfonami de structure and antibacte rial mechanism of action (substanc e) medicatio n Not available Not available Not available 02/08/2020 76059 8003 SNOMED Comme nt: Locat ion: [facility]; Not Available [facility] 0 14:20:44 Medications Name Sig Start Date Stop Date Status Note LastModified by Organization Details LastModified Time citalopra m 10 mg tablet take 1 tablet by oral route every day 11/26 completed Prescrib ed Elsewher e: Yes Loca tion: [facility] odify By: sancho zapataunter DateTime : 04/26/19 18 01:30:00 PM Not Available Not Available Not Available hydrocodo ne 5 mg-acetam inophen 325 mg tablet take 1 tablet by oral route every 6 hours as needed for pain 11/26 completed Prescrib ed Elsewher e: Yes Loca tion: [facility] odify By: sancho Metzger ncounter DateTime : 02/05/20 16 02:30:00 PM Not Available Not Available Not Available levothyro xine 75 mcg tablet TAKE 1 TABLET BY MOUTH EVERY DAY active Not Available Not Available No t Available potassium 99 mg tablet 04/25 completed Prescrib ed Elsewher e: Yes Loca tion: [facility] odify By: sancho Metzger ncounter DateTime : 08/21/19 14 04:30:00 PM Not Available Not Available Not Available thyroid (bulk) powder 11/26 completed Prescrib ed Elsewher e: Yes Loca tion: [facility] odify By: cmedical Encount er DateTime : 08/21/19 14 04:30:00 PM Not Available Not Available Not Available citalopra m 20 mg tablet 11/26 completed Not Available Not Available Not Available Cipro 500 mg tablet take 1 tablet by oral route every 12 hours 11/26 completed Prescrib ed Elsewher e: No Locat ion: [facility] odify By: catracho peterson DateTime : 12/02/19 18 04:30:00 PM Not Available Not Available Not Available gabapenti n 300 mg capsule TAKE 2 CAPSULES BY MOUTH AT BEDTIME 11/26 completed Not Available Not Available Not Available topiramat e 15 mg sprinkle capsule take 1 capsule by oral route 2 times every day in the morning and evening 02/04 completed Prescrib ed Elsewher e: Yes Loca tion: [facility] odify By: amkuhl John ncounter DateTime : 08/21/19 14 04:30:00 PM Not Available Not Available Not Available nabumeton e 500 mg tablet TAKE 1 TABLET BY MOUTH TWICE A DAY 11/26 completed Not Available Not Available Not Available rosuvasta tin 40 mg tablet 11/26 completed Not Available Not Available Not Available Klor-Con M20 mEq tablet,ex tended release TAKE 2 TABLETS BY MOUTH DAILY 11/26 completed Not Available Not Available Not Available Calcio Xochitl 500 mg tablet take 1 by Oral route once 11/26 completed Prescrib ed Elsewher e: Yes Loca tion: [facility] odify By: cmedical Encount er DateTime : 08/21/19 14 04:30:00 PM Not Available Not Available Not Available Vitamin D3 10 mcg (400 unit) capsule active Prescrib ed Elsewher e: Yes Loca tion: [facility] odify By: cmedical Encount er DateTime : 08/21/19 14 04:30:00 PM Not Available Not Available Not Available Belsomra 20 mg tablet TAKE 1 TABLET BY MOUTH EVERYDAY AT BEDTIME active Not Available Not Available No t Available baclofen 5 mg tablet TAKE 2 TABLETS (10 MG TOTAL) BY MOUTH 3 (THREE) TIMES A DAY 11/26 completed Not Available Not Available Not Available Vitals Date Recorded Body height Systolic blood pressure Diastolic blood pressure Provider Name and Address Organization Details Last Updated DateTime 11/26/2022 170.18 cm 128 mm[Hg] 72 mm[Hg] Rimma Stoner [facility] 11/26/2022 14:29:15 Social History Question Answer Notes LastModified by Organizat ion Details LastModified Time Tobacco Smoking Status Never Smoker Rimmadaryl Mitchellnahomy [facility] 11/26/2022 14:14:54 What Is Your Level Of Alcohol Consumption? Occasional Information not available 11/26/2022 Have You Ever Been Counseled For Unhealthy Alcohol Use? No Information not available 11/26/2022 Do You Use Any Illicit Or Recreational Drugs? No Information not available 11/26/2022 Has Tobacco Cessation Counseling Been Provided? No Information not available 11/26/2022 Do You Or Have You Ever Used Any Other Forms Of Tobacco Or Nicotine? No Information not available 11/26/2022 Sex: Unknown Functional Status None recorded. Mental Status None recorded. Family History Nothing Reported Notes:Maternal uncle: Diabet es mellitus Paternal aunt: Cancer, lung Paternal grandfather: Diabetes mellitus Medical History Condition Response Allergies (Food, seasonal, environmental ) N Other N Breast Cancer N Drug/Latex Allergies/Reactions N Blood Transfusion N Dermatologic Disorders N Lung Disease N Defects or Inherited Disease N Breast Problem N Gestational Diabetes N Hematologic disorders N Anesthesia Complications N History of STI N Deep Vein Thrombosis N Polycystic ovary syndrome N Anxiety Disorder N Autoimmune disease N Arthritis N Infertility N Polyps N Acid Reflux (GERD) N History of abnormal pap N Cancer N Stroke Y Varicosities N Neurologic/Epilepsy N Endometriosis N High Cholesterol N Headaches N Fibromyalgia N Kidney Disease N Heart Problems N Kidney or Bladder Problems N Thyroid Problems N GI Problems N Eating Disorder N Anemia N Art (IVF or FET) N Psychiatric Illness N Ovarian Cancer N Diabetes N Pulmonary (TB, Asthma) N Hepatitis/Liver Disease N No Past Medical History N Eczema N Urinary Tract Infection Y Abuse/Domestic Violence N Asthma N Trauma/Violence N Depression/ depression N Heart Disease N Pre-Eclampsia N Hypertension N Osteoporosis N Thrombophilias N Gynecological History Statement/Question Response If Post Menopausal, Age at Menopause 51 Abnormal Pap N Date of Last Colonoscopy 02/22/2016 Date of Last Mammogram 11/21/2021 Most Recent Bone Density 02/21/2021 Sexually Active? N STIs/STDs N HPV Vaccine N Date of Last Pap Smear 02/05/2016 Sexual Problems? N Current Control Method Menopause Obstetrics History GPAL:G 0 P 0 0 0 0 Past Encounters Encounter ID Performer Location Encounter Start Date Encounter Closed Date Diagnosis/Indication Diagnosis SNOMED-CT Code Diagnosis ICD10 Code Diagnosis Note [id number] Amena Pereira , [facility] [address] [address] 11/26/2022 14:19:16 11/30/2022 17:07:15 Gynecologic examination 58868498 Z01.419 Take Calcium with Vitamin D 12-1500mg daily. Do monthly self breast exams. It is advised to get annual flu shot in the fall and she could obtain at [facility] or [facility] care clinic. If you haven't received the Tdap vaccine in the last 10 years you should obtain one as well. Have mammogram yearly, bone density every 2-3 years and colonoscop y every 5-10 years depending on findings and history. Engage in daily exercise of low impact aerobic exercise 45-60 minutes 4-5 times weekly. Avoid tobacco and illicit drugs as well as using moderation with alcohol intake less than 1-2 8 oz beverages daily. This lifestyle behavior pattern will lead to less health conditions and longer life span. If BMI greater than 25 weight watchers or dietary consult advised. Questions have been answered. Patient appears to understand instructio ns, but if you have any further questions call or respond to this email Pap/hpv sent (blind sample sent-diffi cult exam)STD Screen not sexually active for >12yrsGene tic Screen discussedC olon Screen UTD PCPDexa Screen UTD PCPRoutine Labs PCP UTD Health Concerns Section Related Observation LastModified by Organization Detai ls LastModified Time None Recorded Concern Status LastModified by Organization Details LastModified Time None Recorded Advance Directives Directive None Recorded Payers Encounter Date Sequence Insurance Name Policy Number Policy Snyder Covered Member ID Snyder Member ID Guarantor Name 11/26/2022 1 [facility] (MEDICARE REPLACEMENT HMO) [id number] Vera Cunningham [id number] Vera Cunningham Notes Date Note Type Note Provider Name and Address Organization Details Recorded Time 11/26/2022 text/html 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.Menopau jeison Symptoms:no menopausal symptoms; normal vaginal lubrication Vaginal Bleeding:history of menopause having occurred; no history of post menopausal bleeding Urinary Symptoms:no hematuria; no incontinence; no nocturia; no urinary frequency Vulva:no genital lesion; no vulvar atrophy Vagina:normal vaginal discharge; no vaginal atrophy Breast:no breast lump; no nipple discharge; no breast pain Sexual Complaints:no sexual complaints Psychological Symptoms:no depression; no anxiety Preventive Measures:encourag e regular mammograms starting age 40; encourage self breast examination; encourage regular exercise; encourage no tobacco use; needs to schedule mammogram (Has this scheduled); history of recent colonoscopy Amena Pereira, JESSE-BC [address], [place], [address], [facility] 12/02/2022 10:47:32 OBGyn Episode No OBEpisode recorded.
== END 2024-05-30 13:08 | disposition home or self-care (01) ==
PROVIDERS: PCP Nurse Practitioner Family; Visit Provider Psychiatry & Neurology Neurology
DX: I63.9 Cerebral infarction, unspecified (principal); I67.9 Cerebrovascular disease, unspecified
CPT/HCPCS: 93880

== ENCOUNTER 2024-09-11 11:04 | Emergency (ER) | payer OTHER, SELFPAY ==
--- NOTE | ~2024-09-11 | XR_ITS ---
EXAM/ PROCEDURE: XR knee LT min 4V - 09/11/2024 11:25 CDT HISTORY: 63 years old Female with pain COMPARISON: None available TECHNIQUE: Three view(s) FINDINGS/ IMPRESSION: There are no fractures or dislocations.Joint space narrowing, subchondral sclerosis, subchondral cyst formation and osteophyte formation, compatible with mild osteoarthritis. Reviewed, dictated and finalized at location A.
[2024-09-11 11:07] VITALS: BP 134/68; PULSE 91; RESP 16; TEMP 36.5; O2SAT 98
--- OUTSIDE RECORDS SUMMARY | 2024-09-11 11:07 | XMS_ITS | Data Portability ---
Author Organization [facility] [place] Address [address] [place] [address] Assessment Encounter Date Assessment Date Assessment LastModified [...] Name and Address Organization Details Recorded Time Specializ ed medical examinati on Active 2013 Gynecologi devika Examinatio n;Recorded Elsewhere: No Locatio n: [facility] rce: EHR Chroni c: N Practice ID: 0001 Billa ble Time: 04:30:00 PM Not Available [facility] 0 21:23:37 Leukocyto sis [id number] Active 2013 LEUKOCYTOS IS NOS;Record ed Elsewhere: No Locatio n: [facility] rce: EHR Chroni c: N Practice ID: 0001 Billa ble Time: 04:30:00 PM Not Available [facility] 0 21:23:37 Screening for malignant neoplasm of cervix Active 2013 Screening for malignant neoplasms of the cervix;Rec orded Elsewhere: No Locatio n: [facility] rce: EHR Chroni c: N Practice ID: 0001 Billa ble Time: 04:30:00 PM Not Available 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 abn findings;R ecorded Elsewhere: No Locatio n: [facility] rce: EHR Chroni c: N Practice ID: 0001 Billa ble Time: 02:30:00 PM Not Available [facility] 0 21:23:37 Evaluatio n finding Active 2017 Hematuria, unspecifie d;Practice ID: 0001 Not Available [facility] 0 21:23:[address] Concept Active 2017 Encntr for general adult medical exam w/o abnormal findings;R ecorded Elsewhere: No Locatio n: [facility] rce: EHR Chroni c: N Practice ID: 0001 Billa ble Time: 01:30:00 PM Not Available [facility] 0 21:23:[address] Concept Active 2017 Encounter for general adult medical exam w abnormal findings;P ractice ID: 0001 Not Available [facility] 0 21:23:37 Problem Notes None recorded. Procedures Surgical History Date Name Laterality Status Provider Name and Address Organization Details Recorded Time 11/22/19 22 Date of Last Mammogram completed [facility] 11/26/2022 14:29:58 02/21/19 22 Most Recent Bone Density completed [facility] 11/26/2022 14:30:23 02/21/19 17 Date of Last Colonoscopy completed [facility] 11/26/2022 14:30:12 02/05/20 16 Date of Last Pap Smear completed [facility] 11/26/2022 14:29:50 laparoscopic myomectomy completed [facility] 11/26/2022 14:31:06 Imaging Results None recorded. Procedure Notes None recorded. Medical Equipment None Reported. Allergies Allergen ID Allergen Name Allergen Category Reaction Reaction Severity Criticality Documentation Date Start Date Code Code System Note Provider Name and Address Organization Details Recorded Time 69791 Product containin g penicilli n (product) medicatio n Not available Not available Not available 02/08/2020 57259 8001 SNOMED Comme nt: Locat [facility]: [facility]; Not Available [facility] 0 14:20:44 46562 Substance with sulfonami de structure and antibacte rial mechanism of action (substanc e) medicatio n Not available Not available Not available 02/08/2020 03354 8003 SNOMED Comme nt: Locat ion: [facility]; Not Available [facility] 0 14:20:44 Medications Name Sig Start Date Stop Date Status Note LastModified by Organization Details LastModified Time citalopra m 10 mg tablet take 1 tablet by oral route every day 11/26 completed Prescrib ed Elsewher e: Yes Loca tion: [facility]ify By: sancho zapataunter DateTime : 04/26/19 18 01:30:00 PM Not Available Not Available Not Available hydrocodo ne 5 mg-acetam inophen 325 mg tablet take 1 tablet by oral route every 6 hours as needed for pain 11/26 completed Prescrib ed Elsewher e: Yes Loca tion: [facility] odify By: sancho Metzger ncounter DateTime : 02/05/20 16 02:30:00 PM Not Available Not Available Not Available levothyro xine 75 mcg tablet TAKE 1 TABLET BY MOUTH EVERY DAY active Not Available Not Available No t Available potassium 99 mg tablet 04/25 completed Prescrib ed Elsewher e: Yes Loca tion: [facility] odify By: sancho Metzger ncounter DateTime : 08/21/19 14 04:30:00 PM Not Available Not Available Not Available thyroid (bulk) powder 11/26 completed Prescrib ed Elsewher e: Yes Loca tion: [facility] odify By: cmedical Encount er DateTime : 08/21/19 14 04:30:00 PM Not Available Not Available Not Available citalopra m 20 mg tablet 11/26 completed Not Available Not Available Not Available Cipro 500 mg tablet take 1 tablet by oral route every 12 hours 11/26 completed Prescrib ed Elsewher e: No Locat ion: [facility] odify By: catracho peterson DateTime : 12/02/19 [...] Elsewher e: Yes Loca tion: [facility] odify By: amkuhl John ncounter DateTime : [...] Elsewher e: Yes Loca tion: [facility] odify By: cmedical Encount er DateTime : 08/21/19 14 04:30:00 PM Not Available Not Available Not Available Vitamin D3 10 mcg (400 unit) capsule active Prescrib ed Elsewher e: Yes Loca tion: [facility] odify By: cmedical Encount er DateTime : [...] Available Vitals Date Recorded Body height Systolic And Diastolic Provider Name and Address Organization Details Last Updated DateTime 11/26/2022 170.18 cm 128/72 mm[Hg] Rimma Stoner [facility] 11/26/2022 14:29:15 Social History Question Answer Notes LastModified by Organizat ion Details LastModified Time Tobacco Smoking Status Never Smoker Rimma Stoner [facility] 11/26/2022 14:14:54 Have You Ever Been Counseled For Unhealthy Alcohol Use? No Information not available 11/26/2022 Has Tobacco Cessation Counseling Been Provided? No Information not available 11/26/2022 Sex: Unknown Functional Status Question Answer Note LastModified by Organizat ion Details LastModified Time Do you use any illicit or recreational drugs? No Information not available 11/26/2022 Do you or have you ever used any other forms of tobacco or nicotine? No Information not available 11/26/2022 What is your level of alcohol consumption? Occasional Information not available 11/26/2022 Mental Status None recorded. Family History Nothing Reported Notes:Maternal uncle: Diabet es mellitus Paternal aunt: Cancer, lung Paternal grandfather: Diabetes mellitus Medical History Condition Response Other N Blood Transfusion N Dermatologic Disorders N Gestational Diabetes N Anxiety Disorder N Autoimmune disease N Arthritis N Polyps N Infertility N Acid Reflux (GERD) N Cancer N Varicosities N Stroke Y Neurologic/Epilepsy N Fibromyalgia N Headaches N Kidney Disease N Heart Problems N Kidney or Bladder Problems N Eating Disorder N Art (IVF or FET) N Hepatitis/Liver Disease N No Past Medical History N Urinary Tract Infection Y Asthma N Trauma/Violence N Thrombophilias N Allergies (Food, seasonal, environmental ) N Breast Cancer N Drug/Latex Allergies/Reactions N Lung Disease N Defects or Inherited Disease N Breast Problem N Hematologic disorders N Anesthesia Complications N History of STI N Deep Vein Thrombosis N Polycystic ovary syndrome N History of abnormal pap N Endometriosis N High Cholesterol N Thyroid Problems N GI Problems N Anemia N Psychiatric Illness N Ovarian Cancer N Diabetes N Pulmonary (TB, Asthma) N Eczema N Abuse/Domestic Violence N Depression/ depression N Heart Disease N Pre-Eclampsia N Hypertension N Osteoporosis N Gynecological History Statement/Question Response If Post [...] SNOMED-CT Code Diagnosis ICD10 Code Diagnosis Note [id number] Amena Pereira [facility] [address] [address] 11/26/2022 14:19:16 11/30/2022 17:07:15 Gynecologic examination [id number] Z01.419 Take Calcium with Vitamin D 12-1500mg daily. Do monthly self breast exams. It is advised to get annual flu shot in the fall and she could obtain at [facility] or [facility] care clinic. 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 12/02/2022 10:47:32 OBGyn Episode No OBEpisode recorded.
--- OUTSIDE RECORDS SUMMARY | 2024-09-11 11:07 | XMS_ITS | Continuity of Care Document ---
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 [address], [place], [address]. tel: [phone] OFFICE/OUTPAT IENT VISIT NEW [facility] , [address], [place], [address], tel:[phone] [facility] Pain in joint involving shoulder region 5 L'Radha Demarco. [address], [place], [place], [id number] . tel: [phone] Referring Provider: Kendy Kamara [address], [place], [address]. tel:[phone] Family History Family Member Type Diagnosis Age At Onset Father Problem (finding) Cardiovascular disease Payers Payer name Insurance type Covered constitution party ID Clement lauren(s) Essence OT [id number] Social History Type Description Quantity Date Captured [...]
--- OUTSIDE RECORDS SUMMARY | 2024-09-11 12:26 | XMS_ITS | Continuity of Care Document ---
Author Organization [facility] Address [address] [place] [address] Phone Care Team Providers Care Post Doctoral Fellow Name Role Phone Sadie Motta Unavailable Unavaila [...] OFFICE/OUTPAT IENT VISIT EST [facility] , [address] [facility] [address] [place] [address], [facility], tel:[phone] [facility] Bursitis of right shoulderHemip legia, unspecified affecting right dominant sidePain of right shoulder region [address]. [address], [place], [address]. tel: [phone] OFFICE/OUTPAT IENT VISIT NEW [facility] , [address], [place], [address], tel:[phone] [facility] Pain in joint involving shoulder region 5 L'Radha Demarco. [address], [place], [place], [id number] . tel: [phone] Referring Provider: Kendy Kamara [address], [place], [address]. tel:[phone] Family History Family Member Type Diagnosis Age At Onset Father Problem (finding) Cardiovascular disease Payers Payer name Insurance type Covered constitution party ID Clement lauren(s) Essence OT [id number] Social History Type Description Quantity Date Captured Comments Alcohol Use Details Caffeine Use Details Unknown Tobacco Use Status No Information Smoking Status No Information Sex Female Vital Signs Date / Time: Height Weight BMI Pulse Rate Blood Pressure Temperature Respiratory Rate Body Surface Area Head Circumference Head Circ. Percentile Wt./[place]. Percentile BMI percentile Pulse Ox Inhaled Ox [...]
--- NOTE | 2024-09-11 13:49 | ED_ITS ---
HPI - Extremity Problem General Chief complaint: Extremity Problem,Nontraumatic Stated complaint: left knee pain Time Seen by Provider: 09/11/24 11:59 History of Present Illness HPI Narrative: 63-year-old female present to the emergency department for evaluation for left knee pain. Patient does have history of CVA with right-sided deficit. Patient states that she began having left knee pain just few days ago. Patient denies any specific incident of fall or injury. Patient does have history of receiving knee injections on the right knee due to knee swelling/arthritis Related Data Home Medications ?Medication ?Instructions ?Recorded ?Confirmed ?Last Taken ?Type aspirin 81 mg tablet,delayed 81 mg PO DAILY 08/06/19 05/08/24 Unknown History release (Adult Low Dose Aspirin) cholecalciferol (vitamin D3) 50 50 mcg PO DAILY 06/25/20 05/08/24 Unknown History mcg (2,000 unit) capsule Allergies Allergy/AdvReac Type Severity Reaction Status Date / Time nabumetone Allergy Mild skin Verified 09/11/24 11:09 peeling Penicillins Allergy Unknown unknown Verified 09/11/24 11:09 Sulfa (Sulfonamide Allergy Unknown unknown Verified 09/11/24 11:09 Antibiotics) Review of Systems Review of Systems: All systems reviewed & are unremarkable except as noted in HPI and below PMFSH Past Medical History Medical History Left-sided cerebrovascular accident (CVA) Abdominal abscess Enlarged lymph nodes, unspecified Other psychoactive substance use, unspecified 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, recurrent, in partial remission Pure hypercholesterolemia, unspecified Aphasia following cerebral infarction Hemiplegia and hemiparesis following cerebral infarction affecting unspecified side Surgical History Surgical History History of tonsillectomy History of oral surgery Family History Family History Father Family history of heart disease in male family member before age 55 Patient's father is in good health Heart disease Grandparent Diabetes mellitus Family history of Alzheimer's disease Mother Patient's mother is in good health Social History Social History Smoking status: Never smoker Second hand tobacco smoke exposure: Yes Alcohol intake: current Drinks per week: 1 Alcohol use details: social Substance use: current Substance use type: marijuana Last use: edibles Do You Feel Safe in your Home?: Yes Lack of Transportation: No Lack of Food: Never True Current Housing: I Have Housing Concerned About Future Housing: Decline to Answer Difficulty Paying Gas/Electric Bills: Decline to Answer Difficulty Paying for Meds: Decline to Answer Currently Unemployed: Decline to Answer Education: Decline to Answer Difficulty w/ Childcare or Family Care: Decline to Answer Living arrangements: alone Occupation/Education: retired 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 HEAD: normocephalic, atraumatic. EYES: PERRLA/EOMI, conjunctivae clear. NOSE: Normal no drainage EARS:TMS clear with good light reflex. THROAT: Pharynx clear, no exudate. NECK: Supple. No adenopathy, no masses. RESPIRATORY: Airway patent, respirations nonlabored. Clear to auscultation bilaterally, no rales, rhonchi, wheezing. CARDIOVASCULAR: Regular rate and rhythm without murmurs rubs or gallops. ABDOMINAL: Soft, nontender, nondistended, normal bowel sounds MUSCULOSKELETAL: Left knee effusion NEURO: Alert. Cranial nerves II through XII intact. Grossly intact SKIN: Warm, dry. Normal Color Course Vital Signs Vital signs: Vital Signs Temperature 97.7 F 09/11/24 11:07 Pulse Rate 91 09/11/24 11:07 Respiratory Rate 16 09/11/24 11:07 Blood Pressure 134/68 09/11/24 11:07 Pulse Oximetry 98 09/11/24 11:07 Temperature 97.7 F 09/11/24 11:07 Pulse Rate 79 09/11/24 14:50 Respiratory Rate 16 09/11/24 14:50 Blood Pressure 118/70 09/11/24 14:50 Pulse Oximetry 98 09/11/24 14:50 MDM - Extremity (Nontraumatic) MDM Narrative Medical decision making narrative: 63-year-old female present to the emergency department for evaluation for left knee pain. Patient denies any specific incident of fall injury. X-ray was negative for acute fracture dislocation. Suspect osteoarthritis versus internal derangement of the left knee. Patient family were comfortable the plan for placing a knee immobilizer and patient was able to ambulate with that knee immobilizer using her cane. Patient is unable to utilize her right side due to her previous CVA and residual deficit. Patient family are comfortable plan for discharge and close follow-up with her orthopedic physician. All questions concerns were addressed. Differential Diagnosis Differential diagnosis: Likely gout and other (Internal derangement of the knee, arthritis, osteoarthritis, knee effusion, knee contusion) Discharge Plan Discharge Clinical Impression: Injury of knee, left Patient Disposition: Home Condition: Stable Instructions: Antibiotic Form, Knee Pain (ED), Knee Immobilizer (ED) Additional Instructions: Knee immobilizer as directed while awake and ambulating. Have close follow-up with your primary care physician or orthopedic physician for additional outpatient imaging of the left knee such as an MRI to further evaluate the soft tissues of the knee. If you have any worsening symptoms then please call or return to the emergency department. Patient Language: Nepali Prescriptions: New hydrocodone-acetaminophen 5-325 mg tablet 1 tablet PO Q12H PRN (Reason: pain) Qty: 14 0RF No Action aspirin [Adult Low Dose Aspirin] 81 mg tablet,delayed release (DR/EC) 81 mg PO DAILY valacyclovir [Valtrex] 1 gram tablet 1,000 mg PO DAILY Qty: 10 0RF Rx Instructions: 1 pill once daily for 5 days with onset of symptoms cholecalciferol (vitamin D3) 50 mcg (2,000 unit) capsule 50 mcg PO DAILY potassium chloride 10 mEq capsule, extended release 20 meq PO DAILY Qty: 180 1RF Belsomra 20 mg tablet 20 mg PO QHS Qty: 90 0RF rosuvastatin 40 mg tablet See Rx Instructions .ROUTE .COMPLEX Qty: 90 1RF Dose Instruction: TAKE 1 TABLET BY MOUTH EVERY DAY- MAY BE CUT IN HALF IF NEEDED. Rx Instructions: TAKE 1 TABLET BY MOUTH EVERY DAY- MAY BE CUT IN HALF IF NEEDED. levothyroxine 75 mcg tablet See Rx Instructions .ROUTE .COMPLEX Qty: 90 1RF Dose Instruction: TAKE ONE TABLET BY MOUTH ONCE DAILY Rx Instructions: TAKE ONE TABLET BY MOUTH ONCE DAILY Follow-up/Referrals: Umer Morrison MD [Physician] - Cristy Stein APRN [Primary Care Provider] -
[2024-09-11 14:50] VITALS: BP 118/70; PULSE 79; RESP 16; O2SAT 98
== END 2024-09-11 14:54 | disposition home or self-care (01) ==
PROVIDERS: Emergency Provider Emergency Medicine; PCP Nurse Practitioner Family
DX: S89.92XA Unspecified injury of left lower leg, initial encounter (principal); I69.920 Aphasia following unspecified cerebrovascular disease; I69.951 Hemiplegia and hemiparesis following unspecified cerebrovascular disease affecting right dominant side; E78.00 Pure hypercholesterolemia, unspecified; X58.XXXA Exposure to other specified factors, initial encounter; Z79.82 Long term (current) use of aspirin; Z79.899 Other long term (current) drug therapy
CPT/HCPCS: 73564; 99283

== ENCOUNTER 2024-10-17 14:43 | Outpatient (CLI) | payer OTHER, SELFPAY ==
--- NOTE | ~2024-10-17 | CT_ITS ---
EXAMINATION: CT knee LT wo con COMPARISON: None HISTORY: Spontaneous ecchymoses, left knee swelling, no pain TECHNIQUE: Axial images were obtained without IV contrast. Sagittal, coronal reconstruction images were obtained from the axial views. CT scan performed using dose optimization techniques including the following automated exposure control; adjustment of mA and/or kV; use of iterative reconstruction technique. Automatic exposure control was used to reduce radiation dose. Permanent radiation dose record is archived to PACS. FINDINGS: There is no subcutaneous fluid collection, subcutaneous air or foreign body identified. There is no intramuscular hemorrhage demonstrated. No significant joint effusion. There are no calcified loose bodies identified. There are moderate to severe tricompartmental degenerative changes benign of the joint space, osteophytosis and subchondral sclerosis with no significant subchondral cyst formation. There is no fracture or dislocation identified. IMPRESSION: Degenerative changes detailed above Reviewed, dictated and finalized at location A.
== END 2024-10-17 14:44 | disposition home or self-care (01) ==
LOC: MICIMG 14:44
PROVIDERS: PCP Nurse Practitioner Family; Visit Provider Nurse Practitioner Family
DX: R23.3 Spontaneous ecchymoses (principal); M25.462 Effusion, left knee; S70.10XA Contusion of unspecified thigh, initial encounter; S80.10XA Contusion of unspecified lower leg, initial encounter; S80.02XA Contusion of left knee, initial encounter; X58.XXXA Exposure to other specified factors, initial encounter; M17.12 Unilateral primary osteoarthritis, left knee
CPT/HCPCS: 73700

== ENCOUNTER 2024-11-26 09:07 | Outpatient (CLI) | payer OTHER, SELFPAY ==
--- NOTE | ~2024-11-26 | MM_ITS ---
EXAMINATION: MM screening pita BI w derian HISTORY: Screening TECHNIQUE: Craniocaudal and mediolateral oblique 3-D tomosynthesis images were obtained and synthetic 2-D images were generated. CAD analysis was submitted and interpreted. Limited right MLO due to right-sided stroke. COMPARISON: Comparison to multiple prior studies sequentially, with oldest reviewed study dated , 07/31/2018 BREAST PARENCHYMAL COMPOSITION: The breasts are heterogeneously dense, which may obscure small masses. FINDINGS: There is no evidence of suspicious mass, calcification, or architectural distortion to suggest malignancy in either breast. IMPRESSION: 1. No mammographic evidence of malignancy. 2. Recommend routine screening mammography in one year. BI-RADS Category 1: Negative Reviewed, dictated and finalized at location B.
== END 2024-11-26 09:08 | disposition home or self-care (01) ==
PROVIDERS: PCP Nurse Practitioner Family; Visit Provider Nurse Practitioner Family
DX: Z12.31 Encounter for screening mammogram for malignant neoplasm of breast (principal)
CPT/HCPCS: 77063; 77067